=== PATIENT | male | born 1985 | race Caucasian/White ===

== ENCOUNTER 2018-08-16 05:36 | Emergency (ER) | payer SELFPAY ==
[~2018-08-16] VITALS: Ht 172.7 cm; Wt 78.0 kg
[2018-08-16] MEDS ORDERED: LORAZEPAM 2MG/ML CPJ IM STA (06:31)
[2018-08-16 06:41] LABS: BASOPHILS % 0.3 % (0.0-2.0); EOSINOPHILS % 0.2 % (0.0-5.0); HEMATOCRIT. 43.9 % (42.0-52.0); HEMOGLOBIN. 15.5 g/dL (14.0-18.0); LYMPHOCYTES % 20.5 % (20.0-50.0); MEAN CORPUSCULAR HEMOGLOBIN 31.4 pg (28.0-32.0); MEAN CORPUSCULAR VOLUME 88.9 fL (80.0-94.0); MEAN PLATELET VOLUME 8.7 fl (7.4-10.4); PLATELET 194 x1000/uL (130-400); RED BLOOD CELL COUNT 4.94 mill/uL (4.7-6.1)
[2018-08-16 06:46] LABS: CLARITY URINE CLEAR (CLEAR); COLOR URINE DARK YELLOW (YELLOW); KETONES URINE 4+ (NEGATIVE); LEUKOCYTE ESTERASE URINE NEGATIVE (NEGATIVE); NITRITE URINE NEGATIVE (NEGATIVE); OCCULT BLOOD URINE NEGATIVE (NEGATIVE); PH URINE 5.5 (4.5-8.0); PROTEIN URINE TRACE (NEGATIVE); SPECIFIC GRAVITY URINE 1.035 (1.005-1.030); UROBILINOGEN URINE 0.2 E.U./dL (0.2-1.0)
[2018-08-16 06:47] LABS: ETHANOL BLOOD < 10 mg/dL
[2018-08-16 07:03] LABS: *AMPHETAMINES SCREEN URINE NEGATIVE (NEGATIVE); *BARBITURATES SCREEN URINE NEGATIVE (NEGATIVE); CANNABINOID URINE SCREEN NEGATIVE (NEGATIVE); OPIATES URINE SCREEN NEGATIVE (NEGATIVE); PHENCYCLIDINE URINE SCREEN NEGATIVE (NEGATIVE)
[2018-08-16 07:03] LABS: CHLORIDE 105 mEq/L (98-107)
[2018-08-16 07:04] LABS: *BENZODIAZEPINES SCREEN URINE NEGATIVE (NEGATIVE); *COCAINE SCREEN URINE NEGATIVE (NEGATIVE); METHADONE URINE SCREEN NEGATIVE (NEGATIVE)
[2018-08-16] MEDS ORDERED: LORAZEPAM 1MG TABLET PO ONE (16:30)
[2018-08-16] MEDS ORDERED: LORAZEPAM 2MG/ML CPJ IM ONE (16:45)
[2018-08-16] MEDS ORDERED: HALOPERIDOL 5MG TABLET PO ONE (17:15)
[2018-08-16] MEDS ORDERED: HALOPERIDOL LACTATE 5MG/ML VIAL IM ONE (17:30)
[2018-08-17] MEDS ORDERED: LORAZEPAM 1MG TABLET PO ONE (10:30)
[2018-08-17 16:12] VITALS: BP 116/73
== END 2018-08-17 16:23 ==
LOC: ER 05:47
DX: R45.1 Restlessness and agitation (principal); R41.0 Disorientation, unspecified
CPT/HCPCS: 36415; 70450; 80053; 80305; 80307; 80329; 81003; 85025; 96372; 99285; G0482; J1630; J2060